=== PATIENT | male | born 1940 | race Caucasian/White ===

== ENCOUNTER → 2017-01-20 | Outpatient (CLI) | payer OTHER | LOC: FIMAGING 13:30 | PROVIDERS: ATTEND Internal Medicine Hematology & Oncology | DX: Z12.39 Encounter for other screening for malignant neoplasm of breast (principal); N63 Unspecified lump in breast; Z85.118 Personal history of other malignant neoplasm of bronchus and lung; Z85.818 Personal history of malignant neoplasm of other sites of lip, oral cavity, and pharynx | CPT/HCPCS: 76641; G0204 ==

== ENCOUNTER 2017-03-17 12:55 | Emergency (ER) | payer OTHER ==
[2017-03-17 13:08] VITALS: O2SAT 94
--- NOTE | 2017-03-17 15:34 | EDPHY ---
H & P Time Seen by Provider: 03/17/17 14:09 HPI/ROS: CHIEF COMPLAINT: Mechanical fall HISTORY OF PRESENT ILLNESS: The patient is a 76-year-old male who presents emergency department after sustaining a mechanical fall. He states he tripped his left foot over a sprinkler head. This caused him to land forward striking his head and right knee. He now complains of mild right knee pain, mild right shoulder pain, mild right elbow pain, mild right rib pain. Patient states he struck his left ankle which caused the fall. He has mild discomfort at that location. He was able to ambulate post fall. He did not lose consciousness. He has no headache. No nausea or vomiting. No dizziness or focal neurologic deficits. REVIEW OF SYSTEMS: My complete review of systems is negative except as mentioned in the HPI. Past Medical/Surgical History: Includes coronary artery disease, acute AL, stage IV lung cancer, hypertension, skin cancer in Smoking Status: Former smoker Physical Exam: Vitals noted GENERAL: Well-appearing, in no acute distress, alert. HEAD: patient has a small abrasion to his right brow. There is no laceration. No palpable crepitus. EYES: PERRLA, EOMI, normal to inspection. ENT: Airway intact, no dental or oral injury, no malocclusion, no hemotympanum , normal external examination. NECK: The trachea is midline. There is no crepitus. The C-spine is nontender. NEXUS criteria is negative (no midline tenderness, no distracting injury, no altered mental status, no recent alcohol use, no focal neurologic deficit). RESPIRATORY: Clear to auscultation bilaterally, no rales, rhonchi or wheezing. There is no crepitus or palpable rib fractures. CVS: Regular rate and rhythm, no rubs, murmurs, or gallops. ABDOMEN: Soft, nontender, nondistended, normal bowel sounds, no bruising or abrasions. Pelvis: Stable. No tenderness palpation. Hips full range of motion. BACK: Normal to inspection, no spinal tenderness, no spinal step off, no notable bruising or abrasions. SKIN: Normal color, warm, dry. No pallor or diaphoresis. EXTREMITIES: Right upper extremity: Mild right deltoid tenderness palpation. There is mild bruising. No bony tenderness to palpation..Neurovascular intact distally. Patient has no right elbow tenderness palpation. He has full range of motion of his elbow, forearm, wrist and hand. Left upper extremity: Atraumatic. No visible signs of trauma. No tenderness palpation. Neurovascular intact distally. Right lower extremity: Patient has mild swelling over his right knee. There is mild contusion. He has no bony tenderness to palpation. Full range of motion. Neurovascular intact distally. Left lower extremity: Mild. No tenderness palpation. Neurovascular intact distally. NEURO/PSYCH: Alert and oriented x 3, GCS 15, normal mood and affect, normal motor sensory exam. Constitutional: Initial Vital Signs Temperature (C) 36.4 C 03/17/17 13:05 Heart Rate 65 03/17/17 13:05 Respiratory Rate 16 03/17/17 13:05 Blood Pressure 98/62 L 03/17/17 13:05 O2 Sat (%) 94 03/17/17 13:05 O2 Delivery Mode Room Air Allergies/Adverse Reactions: "MUSCLE RELAXERS" Adverse Reaction (Unknown, Uncoded 08/06/15 17:13) Home Medications: Medication Instructions Recorded COREG CR 09/12/09 CRESTOR 09/12/09 FLOMAX 09/12/09 Gemfibrozil 09/12/09 OMEPRAZOLE 09/12/09 Medical Decision Making - Diagnostics Imaging Results: Imaging Impressions Chest X-Ray 03/17/17 14:42 Impression: Nothing acute identified. Knee X-Ray 03/17/17 14:42 Impression: 1. Severe osteoarthritis with evidence for instability 2. Patellar tendon swelling. Shoulder X-Ray 03/17/17 14:42 Impression: 1. Rotator cuff tear of unknown chronicity, but likely old. 2. Scattered small lytic lesions in the humeral shaft and scapula. Query multiple myeloma versus potential metastatic disease from lung or laryngeal cancer? This patient might benefit from serum electrophoresis and whole body bone scanning. 3. No fracture. Ankle X-Ray 03/17/17 14:48 Impression: There is no acute fracture observed. Head CT 03/17/17 14:48 Impression: There is no acute abnormality identified on this unenhanced CT evaluation. If there is further clinical concern regarding the patient's symptoms, MR imaging is suggested, if not otherwise contraindicated. Findings were discussed with TRACY RUVALCABA MD at 15:20, on 03/17/2017. ED Course/Re-evaluation: In the emergency department I discussed possible etiologies with the patient. I answered all his questions. He had his wound anesthetized with 1% lidocaine and epinephrine. This was cleaned thoroughly. Please refer the techs note. He had x-ray of his left ankle, right knee, right shoulder, chest and head CT. Please refer to the imaging results. Head CT was negative. There is no acute finding on his plain films. Dr. White required metastatic disease. I discussed these results with the patient. I informed him the need close follow- up with his oncologist Dr. Jaffe. He states he has an old rotator cuff injury. I do not think this is acute on x-ray. The patient was given warnings prior to leaving. He will return with worsening symptoms. He ambulated without difficulty. Differential Diagnosis: My differential includes but is not limited to fracture, dislocation, contusion , abrasion, subarachnoid hemorrhage, subdural hematoma, epidural hematoma, spinal injury, metastatic disease Departure - Departure Disposition: Home, Routine, Self-Care Clinical Impression: Contusion of right elbow, Left ankle sprain, Rib contusion, Scalp abrasion Shoulder contusion Qualifiers: Encounter type: initial encounter Laterality: right Qualified Code(s): S40.011A - Contusion of right shoulder, initial encounter Condition: Good Instructions: Abrasion (ED), Contusion in Adults (ED) Additional Instructions: Your x-rays not show any acute disease. You need close follow-up with your oncologist for possible metastatic disease on your x-ray. Referrals: Hieu Sykes MD [Primary Care Provider] - 3-4 days, if not improved
[2017-03-17 15:53] VITALS: BP 130/77; PULSE 80; RESP 14; TEMP 98.4
== END 2017-03-17 15:54 | disposition home or self-care (01) ==
DX: S00.01XA Abrasion of scalp, initial encounter (principal); S40.011A Contusion of right shoulder, initial encounter; S50.01XA Contusion of right elbow, initial encounter; S93.402A Sprain of unspecified ligament of left ankle, initial encounter; S20.20XA Contusion of thorax, unspecified, initial encounter; I25.10 Atherosclerotic heart disease of native coronary artery without angina pectoris; I25.2 Old myocardial infarction; Z85.118 Personal history of other malignant neoplasm of bronchus and lung; Z85.828 Personal history of other malignant neoplasm of skin; Z87.891 Personal history of nicotine dependence; W01.198A Fall on same level from slipping, tripping and stumbling with subsequent striking against other object, initial encounter

== ENCOUNTER → 2017-03-30 | Outpatient (CLI) | payer OTHER | LOC: FIMAGING 08:06 | PROVIDERS: ATTEND Internal Medicine | DX: M50.30 Other cervical disc degeneration, unspecified cervical region (principal); M25.811 Other specified joint disorders, right shoulder; M25.812 Other specified joint disorders, left shoulder; M25.861 Other specified joint disorders, right knee; M25.862 Other specified joint disorders, left knee; M25.871 Other specified joint disorders, right ankle and foot; M25.872 Other specified joint disorders, left ankle and foot; C34.90 Malignant neoplasm of unspecified part of unspecified bronchus or lung; R63.4 Abnormal weight loss | CPT/HCPCS: 78306; A9503 ==

== ENCOUNTER → 2017-05-15 | Outpatient (CLI) | payer OTHER | LOC: FIMAGING 13:00 | PROVIDERS: ATTEND Internal Medicine Hematology & Oncology | DX: Z13.89 Encounter for screening for other disorder (principal); C34.32 Malignant neoplasm of lower lobe, left bronchus or lung; I25.10 Atherosclerotic heart disease of native coronary artery without angina pectoris; K21.0 Gastro-esophageal reflux disease with esophagitis; M12.9 Arthropathy, unspecified ==

== ENCOUNTER 2019-01-10 16:56 | Emergency (ER) | payer OTHER ==
--- NOTE | 2019-01-10 17:16 | EDPHY ---
H & P Stated Complaint: nail cut R hand Time Seen by Provider: 01/10/19 17:10 HPI/ROS: CHIEF COMPLAINT: Hand laceration HISTORY OF PRESENT ILLNESS: The patient is an 78-year-old man who comes to the emergency department complaining of a laceration to the dorsum of his right hand. He was working on a board with nails in it when he picked his hand up and scraped it against a nail that was protruding. The the nail punctured the proximal dorsal aspect of his hand and went underneath the skin and exited on his distal dorsal hand. It did not go through and through. He has normal range of motion and function. He was concerned because he takes Coumadin for history of multiple cardiac stents. The nail is still in the board at home and he is not concerned for foreign body. Severity: Moderate Modifying factors: None REVIEW OF SYSTEMS: Constitutional: denies: chills, fever, recent illness, recent injury EENTM: denies: blurred vision, double vision, nose congestion Respiratory: denies: cough, shortness of breath Cardiac: denies: chest pain, irregular heart rate, lightheadedness, palpitations Gastrointestinal/Abdominal: denies: abdominal pain, diarrhea, nausea, vomiting, blood streaked stools Genitourinary: denies: dysuria, frequency, hematuria, pain Musculoskeletal: denies: joint pain, muscle pain Skin: See HPI Neurological: denies: headache, numbness, paresthesia, tingling, dizziness, weakness Hematologic/Lymphatic: denies: blood clots, easy bleeding, easy bruising Immunologic/allergic: denies: HIV/AIDS, transplant 10 systems reviewed and negative except as noted EXAM: GENERAL: Well-appearing, well-nourished and in no acute distress. HEAD: Atraumatic, normocephalic. EYES: Pupils equal round and reactive to light, extraocular movements intact, sclera anicteric, conjunctiva are normal. ENT: TMs normal, nares patent, oropharynx clear without exudates. Moist mucous membranes. NECK: Normal range of motion, supple without lymphadenopathy or JVD. LUNGS: Breath sounds clear to auscultation bilaterally and equal. No wheezes rales or rhonchi. HEART: Regular rate and rhythm without murmurs, rubs or gallops. ABDOMEN: Soft, nontender, normoactive bowel sounds. No guarding, no rebound. No masses appreciated. BACK: No CVA tenderness, no spinal tenderness, step-offs or deformities EXTREMITIES: Normal range of motion, no pitting or edema. No clubbing or cyanosis. NEUROLOGICAL: Cranial nerves II through XII grossly intact. Normal speech, normal gait. 5/5 strength, normal movement in all extremities, normal sensation , normal reflexes PSYCH: Normal mood, normal affect. SKIN: Patient has shallow puncture wound and skin tear, see diagram Source: Patient Exam Limitations: No limitations - Personal History Current Tetanus Diphtheria and Acellular Pertussis (TDAP): Yes - Medical/Surgical History Hx Asthma: No Hx Chronic Respiratory Disease: No Hx Diabetes: No Hx Cardiac Disease: Yes Hx Renal Disease: No Hx Cirrhosis: No Hx Alcoholism: No Hx HIV/AIDS: No Hx Splenectomy or Spleen Trauma: No Other PMH: mult cardiac stents on coumadin. stage 4 lung ca hx, throat CA hx. hypotension - Family History Significant Family History: No pertinent family hx - Social History Smoking Status: Former smoker Alcohol Use: None Constitutional: Initial Vital Signs Temperature (C) 36.4 C 01/10/19 16:59 Heart Rate 74 01/10/19 16:59 Respiratory Rate 16 01/10/19 16:59 Blood Pressure 110/72 01/10/19 16:59 O2 Sat (%) 96 01/10/19 16:59 O2 Delivery Mode Room Air Allergies/Adverse Reactions: "MUSCLE RELAXERS" Adverse Reaction (Unknown, Uncoded 08/06/15 17:13) Home Medications: Medication Instructions Recorded COREG CR 09/12/09 CRESTOR 09/12/09 FLOMAX 09/12/09 Gemfibrozil 09/12/09 OMEPRAZOLE 09/12/09 Amoxicillin/Clavulanate Pot 875 mg PO BID #14 tab 01/10/19 [Augmentin 875Mg] ED Images - Extremities Hands Back Left/Right: 1 - V-shaped laceration 2 - Small puncture wound Medical Decision Making - Diagnostics Imaging: Discussed imaging studies w/ train caller Radiologist ED Course/Re-evaluation: Patient has normal function and range of motion of all muscles tendons and bones in hand. This appears to be a puncture wound that stayed very superficial just under the skin. There is a v-shaped laceration proximally where the nail entered and a small puncture wound distally where it exited. Will obtain x-ray to rule out foreign body. Will irrigate thoroughly. Will not close for concern of infection. No significant bleeding at this time. 6:30 p.m. the patient's wound has been irrigated and dressed. Bleeding remains controlled. Will leave to heal by secondary intention. Discussed indications for returning. Will also refer to hand surgeon for follow-up. Differential Diagnosis: Partial list of the Differential diagnosis considered include but were not limited to; laceration, puncture wound, foreign body and although unlikely based on the history and physical exam, I also considered fracture, tendon injury, vascular injury, tendon sheath injury. I discussed these differential diagnoses and the plan with the patient as well as the usual and expected course. The patient understands that the diagnosis is provisional and that in medicine we are not always correct and that further workup is often warranted. Usual and customary warnings were given. All of the patient's questions were answered. The patient was instructed to return to the emergency department should the symptoms at all worsen or return, otherwise to followup with the physician as we discussed. - Data Points Medications Given: Discontinued Medications Amoxicillin/Clavulanate Potassium (Augmentin 875mg) 875 mg PO EDNOW ONE PRN Reason: Protocol Stop: 01/10/19 17:19 Last Admin: 01/10/19 17:29 Dose: 875 mg Departure - Departure Disposition: Home, Routine, Self-Care Clinical Impression: Laceration Condition: Fair Instructions: Laceration (ED) Referrals: Hieu Sykes MD [Primary Care Provider] - As per Instructions Laci Fish MD [Medical Doctor] - 2-3 days without fail Prescriptions: Amoxicillin/Clavulanate Pot [Augmentin 875Mg] 875 mg PO BID #14 tab
[2019-01-10] MEDS ORDERED: AMOXICILLIN/CLAVULANATE POT 875/125 MG TAB PO ONE (17:18)
[2019-01-10 18:45] VITALS: BP 119/65
== END 2019-01-10 18:45 | disposition home or self-care (01) ==
DX: S61.411A Laceration without foreign body of right hand, initial encounter (principal); I95.9 Hypotension, unspecified; W26.8XXA Contact with other sharp object(s), not elsewhere classified, initial encounter; Y99.9 Unspecified external cause status; Z95.5 Presence of coronary angioplasty implant and graft; Z79.01 Long term (current) use of anticoagulants; Z87.891 Personal history of nicotine dependence; Z85.118 Personal history of other malignant neoplasm of bronchus and lung; Z85.818 Personal history of malignant neoplasm of other sites of lip, oral cavity, and pharynx